=== PATIENT | female | born 1945 | race Caucasian/White ===

== ENCOUNTER → 2017-07-08 | Outpatient (CLI) | payer OTHER ==
[~2017-07-08] MED LIST: ENOX40I SC; FAMO40 PO; HYDR1TAB94 PO; LEVSOD75 PO; MULVITMIND PO; OXYACE5T PO; SERT100 PO
== END ==
LOC: PLD 13:13 → LAB SHORT 13:13
DX: L72.0 Epidermal cyst (principal)
CPT/HCPCS: 88304

== ENCOUNTER 2020-09-26 07:44 | Day surgery (SDC) | payer OTHER ==
[~2020-09-26] VITALS: Ht 162.6 cm; Wt 76.9 kg
[~2020-09-26 07:44] MED LIST changes: +ACET500 PO; +OCUVITE BLUE L1 EACH PO; +OYSTER SHELL 51 EACH PO
--- NOTE | 2020-09-26 08:08 | NUR ---
09/26/20 0808 Cristobal,Dexter BOYER BOWEL PREP SUTABS
--- NOTE | 2020-09-26 09:40 | NUR ---
09/26/20 0940 Angélica Vazquez 0925 IV SITE IN RIGHT HAND INFILTRATED, NEW IV SITE PLACED IN LEFT HAND.
== END 2020-09-26 10:25 | disposition home or self-care (01) ==
LOC: ORSCSDS 07:44
PROVIDERS: Surgery
PROC: 0DJD8ZZ Inspection of Lower Intestinal Tract, Via Natural or Artificial Opening Endoscopic (ICD-10-PCS; principal; 2020-09-26 09:00)
DX: Z12.11 Encounter for screening for malignant neoplasm of colon (principal); K57.30 Diverticulosis of large intestine without perforation or abscess without bleeding; K64.8 Other hemorrhoids; E03.9 Hypothyroidism, unspecified; Z79.899 Other long term (current) drug therapy
CPT/HCPCS: J2704; J7120

== ENCOUNTER 2021-12-26 08:49 | Day surgery (SDC) | payer OTHER ==
[~2021-12-26] VITALS: Ht 162.6 cm; Wt 79.5 kg
[2021-12-26] MEDS ORDERED: ASPIR 8181 M1 (09:33)
--- NOTE | 2021-12-26 10:24 | NUR ---
12/26/21 Sheri Avalos BUPIVACAINE 0.25% MIXED 1:1 W/ BUPIVACAINE 0.75% TO MAKE 30 MLS BUPIVACAINE 0.5%. BUPIVACAINE 0.5% 30 MLS MIXED W/ EPI 0.15 (1MG/ML) PER ORDER TO MAKE BUPIVACAINE 0.5% 1:200,000 FOR INJECTION AT OPSITE. ALL 30 MLS INJECTED.
--- NOTE | 2021-12-26 11:18 | NUR ---
12/26/21 1118 Angélica Vazquez PT. DENIES PAIN OR NAUSEA. PT. SHIVERING, PT. GIVEN A WARM BLANKET.
--- NOTE | 2021-12-26 12:24 | NUR ---
12/26/21 1224 Angélica Vazquez PT. VERBALIZES PAIN IS BETTER. STATES "NOT TIGHT."
== END 2021-12-26 12:54 | disposition home or self-care (01) ==
LOC: ORSCSDS 08:49
PROVIDERS: Podiatrist Foot & Ankle Surgery
PROC: 0QSK04Z Reposition Left Fibula with Internal Fixation Device, Open Approach (ICD-10-PCS; principal; 2021-12-26 10:00)
DX: S82.62XA Displaced fracture of lateral malleolus of left fibula, initial encounter for closed fracture (principal); K21.9 Gastro-esophageal reflux disease without esophagitis; E03.9 Hypothyroidism, unspecified; Z79.899 Other long term (current) drug therapy; Z79.82 Long term (current) use of aspirin
CPT/HCPCS: A9270; C1713; J0690; J1100; J1885; J2250; J2405; J2704; J3010